=== PATIENT | male | born 1950 | race Caucasian/White ===

== ENCOUNTER → 2017-10-09 | Day surgery (SDC) | payer MEDICARE ==
[2017-10-08 09:42] LABS: BASOPHILS % 0.8 % (0.0-1.0); EOSINOPHILS # (AUTO) 0.1 (0.0-0.4); EOSINOPHILS % 2.3 % (0.0-6.0); HEMATOCRIT 46.2 % (38.2-49.6); HEMOGLOBIN 14.7 g/dL (14.0-18.0); LYMPHOCYTES # (AUTO) 1.1 (1.0-3.2); LYMPHOCYTES % 20.3 % (18.0-39.1); MEAN CORPUSCULAR HEMOGLOBIN 30.8 pg (28-32); MEAN CORPUSCULAR HGB CONC 31.8 g/dL (31-35); MEAN CORPUSCULAR VOLUME 96.9 fL (81-99); MONOCYTES # (AUTO) 0.5 (0.2-0.8); MONOCYTES % 9.6 % (4.4-11.3); NEUTROPHILS # (AUTO) 3.5 (2.1-6.9); NEUTROPHILS % 66.2 % (38.7-80.0); PLATELET COUNT 148 x10e3/uL (140-360); RED BLOOD COUNT 4.77 x10e6/uL (4.3-5.7)
[~2017-10-09] MED LIST: BYSTOLIC10 MG PO; ELIQUIS PO; LIDOCAINE HCL 2% LOCAL INJ 5 ML SDV VIAL INJ ONE; METOPROLOL SUC200 MG PO; MIDAZOLAM HCL 2 MG/2 ML VIAL ONE; NEXIUM40 MG PO; OMEPRAZOLE20 MG PO; PROPOFOL IV EMULSION 10 MG/ML 20 ML VIAL ONE; SIMVASTATIN20 MG PO; ULTRAM 50MG50 MG PO; ULTRAM50 MG PO; ZOLOFT100 MG PO
--- NOTE | 2017-10-09 10:00 | Operative Report ---
DATE OF PROCEDURE: October 09, 2017 PROCEDURE PERFORMED: Colonoscopy. PREOPERATIVE DIAGNOSIS: History of colon polyps. POSTOPERATIVE DIAGNOSIS: History of colon polyps. PREOPERATIVE MEDICATIONS: Consisted of general anesthesia. PROCEDURE: Using the Olympus Anbado Video video colonoscope, it was inserted into the patient's rectum and advanced without difficulty to the level of the cecum. Photograph was obtained for photo documentation. The colonoscope was withdrawn from that level back down to the rectum. No polypoid lesions were found. The colonoscope was withdrawn from the patient's rectum, and the procedure was ended. In conclusion, we have a normal examination with no new colon polyps found. Job#: [id number]
== END | disposition home or self-care (01) ==
LOC: OR 07:41
PROVIDERS: ATTEND Internal Medicine Gastroenterology
DX: Z09 Encounter for follow-up examination after completed treatment for conditions other than malignant neoplasm (principal); G47.33 Obstructive sleep apnea (adult) (pediatric); I48.91 Unspecified atrial fibrillation; I10 Essential (primary) hypertension; F32.9 Major depressive disorder, single episode, unspecified; Z01.812 Encounter for preprocedural laboratory examination; Z68.42 Body mass index [BMI] 45.0-49.9, adult; Z79.02 Long term (current) use of antithrombotics/antiplatelets
CPT/HCPCS: 36415; 45378; 85025; 93005; J2001; J2250

== ENCOUNTER → 2019-12-28 | Outpatient (CLI) | payer MEDICARE ==
[~2019-12-28] MED LIST changes: -LIDOCAINE HCL 2% LOCAL INJ 5 ML SDV VIAL INJ ONE; -MIDAZOLAM HCL 2 MG/2 ML VIAL ONE; -PROPOFOL IV EMULSION 10 MG/ML 20 ML VIAL ONE
--- NOTE | 2019-12-28 15:10 | Diagnostic Imaging Report ---
EXAMINATION: CHEST 2 VIEWS INDICATION: Trauma COMPARISON: None FINDINGS: LINES/TUBES:None LUNGS:The lungs are moderately inflated. No focal consolidation or pulmonary edema. PLEURA:No pleural effusion or pneumothorax. MEDIASTINUM:The heart is mildly enlarged.. Atherosclerotic calcifications of the thoracic aorta. BONES/SOFT TISSUES:No acute osseous injury. ABDOMEN:No free air under the diaphragm. IMPRESSION: No radiographic evidence of acute traumatic injury to the thorax. Cardiomegaly. Signed by: Braden Bearden MD on 12/28/2019 3:07 PM
== END ==
LOC: RAD 13:59
PROVIDERS: ATTEND Internal Medicine
DX: S20.219A Contusion of unspecified front wall of thorax, initial encounter (principal)
CPT/HCPCS: 71046

== ENCOUNTER → 2023-02-26 | Outpatient (CLI) | payer MEDICARE | LOC: RAD 13:42 | PROVIDERS: ATTEND Internal Medicine | DX: J15.9 Unspecified bacterial pneumonia (principal); I50.33 Acute on chronic diastolic (congestive) heart failure | CPT/HCPCS: 71046 ==